=== PATIENT | male | born 1960 | race Two or more races ===

== ENCOUNTER 2024-11-10 21:00 | Emergency (ER) | payer MEDICARE, OTHER ==
[~2024-11-10] VITALS: Ht 177.8 cm; Wt 185.0 kg
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
[2024-11-10 21:38] LABS: Basophils # (auto) 0.1 10 ^3/uL (0-0.2); Basophils % (auto) 0.9 % (0.0-2.0); Eosinophils # (auto) 0.3 10 ^3/uL (0-0.8); Eosinophils % (auto) 2.4 % (0.0-7.0); Hematocrit 43.4 % (41.0-53.0); Hemoglobin 14.9 g/dL (13.5-17.5); Lymphocytes # (auto) 2.2 10 ^3/uL (0.4-5.4); Lymphocytes % (auto) 18.8 % (10.0-50.0); Mean Corpuscular Hemoglobin 30.2 pg (28.0-32.0); Mean Corpuscular Hgb Conc. 34.4 g/dL (32.0-36.0); Mean Corpuscular Volume 87.7 fL (80.0-100.0); Monocytes # (auto) 0.7 10 ^3/uL (0-1.3); Monocytes % (auto) 6.3 % (0.0-12.0); Neutrophils # (auto) 8.4 10 ^3/uL (1.6-8.6); Neutrophils % (auto) 71.6 % (37.0-80.0); Nucleated Red Blood Cells % 0.1 %; Platelet Count (auto) 222 10^3/uL (140-450); Red Blood Cells 4.95 10^6/uL (4.5-5.90); Red Cell Distribution Width 13.5 % (11.8-14.3); White Blood Cell 11.8 10^3/uL (4.4-10.8)
[2024-11-10 21:46] LABS: Potassium 4.3 mmol/L (3.5-5.1); Sodium 144 mmol/L (136-145)
[2024-11-10 21:47] LABS: Anion Gap 6 (5-15); Calcium 9.9 mg/dL (8.7-10.4); Carbon Dioxide 28 mmol/L (20-31); Chloride 110 mmol/L (98-107)
[2024-11-10 21:52] LABS: BUN/Creatinine Ratio 16.5 (10.0-20.0); Blood Urea Nitrogen 18 mg/dL (9-23)
[2024-11-10 21:54] LABS: Glucose 135 mg/dL (74-106)
--- NOTE | 2024-11-10 22:26 | DVH ---
CHEST RADIOGRAPH Indication: chest pain Technique: Single frontal view of the chest was obtained COMPARISON: None FINDINGS: Lines and Tubes: None Lungs: Clear Pleura: No effusion. No pneumothorax. Cardiomediastinal contours: Unremarkable IMPRESSION: No abnormality.
[2024-11-10 22:56] VITALS: BP 113/82; TEMP 97.6
[2024-11-10] MEDS: ACETAMINOPHEN 325 MG TAB PO ONE (23:17)
[2024-11-10 23:22] VITALS: PULSE 69; RESP 20; O2SAT 96
--- NOTE | 2024-11-12 12:02 | ECG ---
[facility] Test Date: 2024-11-10 Test Time: 21:06:52 Pat Name: LIBERTY MOORE Department: ED Room: Gender: M Manager Express: : 1960 Requested By: TIFFANIE ESQUEDA Order Number: [id number] Reading MD: Sharif Regan Measurements Intervals [place] Rate: 62 P: 73 DE: 172 QRS: 27 QRSD: 101 T: 55 QT: 404 QTc: 411 Interpretive Statements Sinus rhythm Abnormal R-wave progression, early transition Minimal ST elevation, anterior leads Electronically Signed On 11-14-2024 14:43:08 PDT by Sharif Regan Please click the below link to view image of tracing.
== END 2024-11-11 00:20 | disposition home or self-care (01) ==
LOC: ER 21:00 → EDBD 21:00 → ER 11-11 00:20
DX: S20.211A Contusion of right front wall of thorax, initial encounter (principal); Y08.89XA Assault by other specified means, initial encounter; Y93.89 Activity, other specified; Y92.89 Other specified places as the place of occurrence of the external cause; Y99.8 Other external cause status
CPT/HCPCS: 36415; 71045; 80048; 84484; 85025; 93005